=== PATIENT | male | born 1985 | race Caucasian/White ===

== ENCOUNTER 2017-08-20 20:09 | Emergency (ER) | payer SELFPAY ==
[2017-08-20 20:20] VITALS: BP 139/81; PULSE 96; TEMP 98.7; BMI 32.6
--- NOTE | 2017-08-20 20:20 | PDOC ---
Rapid Medical Evaluation Time Seen by Provider: 08/20/17 20:16 Medical Evaluation: Allergies Allergy/AdvReac Type Severity Reaction Status Date / Time No Known Allergies Allergy Verified 08/20/17 20:16 08/20/17 20:16 I have performed a brief in-person evaluation of the patient. 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 used bacitracin but did not heal it. Pertinent physical exam findings: NAD unlabored breathing left toe erythematous and swollen I have ordered the following: states possible td one year ago The patient will proceed to the ED for further evaluation.
--- NOTE | 2017-08-20 20:51 | PDOC ---
History of Present Illness - General Chief Complaint: Redness To Affected Area Stated Complaint: INFECTED TOENAIL Time Seen by Provider: 08/20/17 20:16 - History of Present Illness Initial Comments: 08/20/17 20:51 CHIEF COMPLAINT: toe pain HISTORY OF PRESENT ILLNESS: 32 yo M with no significant PMH presents to fast track with pain and swelling to left great toe. Patient reports having this pain for "about a month." He denies any fever, chills, nausea, vomiting, or diarrhea. PAST MEDICAL HISTORY: Denies past medical history FAMILY HISTORY: Denies SOCIAL HISTORY: Denies tobacco, alcohol, illicit drug use. SURGICAL HISTORY: Denies ALLERGIES: No known drug allergies REVIEW OF SYSTEMS General/Constitutional: Denies fever or chills. Denies weakness, weight change. HEENT: Denies change in vision. Denies ear pain or discharge. Denies sore throat. Cardiovascular: Denies chest pain or shortness of breath. Respiratory: Denies cough, wheezing, or hemoptysis. Gastrointestinal: Denies nausea, vomiting, diarrhea or constipation. Denies rectal bleeding. Genitourinary: Denies dysuria, frequency, or change in urination. Musculoskeletal: Denies joint or muscle swelling or pain. Denies neck or back pain. Skin and breasts: Denies rash or easy bruising. PHYSICAL EXAM General Appearance: Well-appearing, appropriately dressed. No apparent distress. HEENT: EOMI, PERRLA. Respiratory/Chest: Lungs CTAB. Cardiovascular: RRR. S1, S2. Musculoskeletal/Extremities: Normal inspection. FROM of all extremities, normal capillary refill. Pelvis Stable. No CVA tenderness. No tenderness to extremities, pedal edema, swelling, erythema or deformity. Integumentary: Paronychia to b/l toenails. Left great toe erythematous, swollen and tender with calloused skin to lateral aspect of toe. Right great toe with mild paronychia, no significant swelling or induration. Appropriate color, dry, warm. No cyanosis, erythema, jaundice or rash Neurologic: plywood scarfer tender II-XII intact. Fully oriented, alert. Appropriate mood/affect. Motor strength 5/5. No appreciable EOM palsy, facial droop or sensory deficit. Past History - Past Medical History Allergies/Adverse Reactions: Allergies Allergy/AdvReac Type Severity Reaction Status Date / Time No Known Allergies Allergy Verified 08/20/17 20:16 Home Medications: Ambulatory Orders Sulfamethoxazole/Trimethoprim [Bactrim Ds -] 1 tab PO BID #14 tablet 08/20/17 COPD: No - Suicide/Smoking/Psychosocial Hx Smoking History: Never smoked *Physical Exam - Vital Signs Last Vital Signs Temp Pulse Resp BP Pulse Ox 98.7 F 96 H 18 139/81 98 08/20/17 20:17 08/20/17 20:17 08/20/17 20:17 08/20/17 20:17 08/20/17 20:17 Procedures - Consent Consent obtained: Verbal - Incision and Drainage I&D Site: Left: Paronychia Betadine cleansed: Yes Anesthesia: 1% Lidocaine Volume(ml): 2 Blade Size: 11 Attempts: 1 Plain Packing: No Complications: none Dressing: Yes (xeroform, kerlix) Medical Decision Making - Medical Decision Making 08/20/17 20:54 32 yo M with no significant PMH presents to fast track with pain and swelling to left great toe. Paronychia I&D performed to left great toe. Toenail significant grown under calloused skin; patient will be referred to specialist for surgical removal. Wound culture sent. Advised patient to soak both feet for 15 minutes 4 times daily. Antibiotics sent to pharm. Advised patient to take medication as prescribed and follow up with podiatry within the next week. Advised patient of signs and symptoms for return to ED. Patient verbalized understanding and agrees to plan. *DC/Admit/Observation/Transfer Diagnosis at time of Disposition: Paronychia - Discharge Dispostion Disposition: HOME Condition at time of disposition: Stable Admit: No - Prescriptions Prescriptions: Sulfamethoxazole/Trimethoprim [Bactrim Ds -] 1 tab PO BID #14 tablet - Referrals Referrals: Lg Palacios MD [Staff Physician] - - Patient Instructions Printed Discharge Instructions: DI for Paronychia Additional Instructions: Please take medication as prescribed; complete the ENTIRE course of medication even if symptoms improve. As discussed, please soak your feet in warm water for at least 15 minutes, 4 times a day. If you develop fever, chills, vomiting , diarrhea, or your toe becomes more swollen, hot, or painful, please return to the ER immediately. Por favor tome la medicacin segn lo prescrito; complete el curso completo de la medicacin incluso si los sntomas mejoran. Monarch se discuti, empape natalee pies en agua tibia por al menos 15 minutos, 4 veces al da. Si tiene fiebre, escalofros, vmitos, diarrea o si el dedo se le hincha ms, le duele o le duele , por favor regrese a la collin de urgencias inmediatamente. Print Language: TAJIK - Post Discharge Activity
[2017-08-20] MEDS ORDERED: SULFAMETHOXAZOLE/TRIMETHOPRIM 800MG/160MG D.S. TABLET PO ONE (20:56)
[2017-08-20] MEDS ORDERED: SULFAMETHOXAZOLE/TRIMETHOPRIM 800MG/160MG D.S. TABLET ONE (20:57)
--- NOTE | 2017-08-23 07:27 | PDOC ---
Patient Follow-up (Call Back) - Post ED Follow - Up Condition at time of discharge: Stable Disposition at time of original discharge: HOME Reason for Call Back: Abnwl. Microbiology (Wound culture shows presumptive MSSA. Patient currently on Bactrim. Will await final report.)
--- NOTE | 2017-08-24 07:44 | PDOC ---
Patient Follow-up (Call Back) - Post ED Follow - Up Condition at time of discharge: Stable Disposition at time of original discharge: HOME Reason for Call Back: Abnwl. Microbiology (Pt. with MSSA on wound culture and currently being treated with bactrim. Organism is sensitive to bactrim. No further action needed at this time.)
== END 2017-08-20 21:03 | disposition home or self-care (01) ==
LOC: JER 20:09 → JERFT 20:09
PROC: 0H9NXZZ Drainage of Left Foot Skin, External Approach (ICD-10-PCS; principal; 2017-08-20)
DX: L03.032 Cellulitis of left toe (principal); L84 Corns and callosities
CPT/HCPCS: 87070; 87076; 87186; 87205; 99281-25

== ENCOUNTER 2020-09-03 11:47 | Emergency (ER) | payer SELFPAY ==
[2020-09-03 12:10] VITALS: BP 131/77; PULSE 89; TEMP 97.9; BMI 27.4
== END 2020-09-03 12:41 | disposition home or self-care (01) ==
LOC: JERFT 11:47
DX: S02.5XXA Fracture of tooth (traumatic), initial encounter for closed fracture (principal)
CPT/HCPCS: 99281-25